=== PATIENT | male | born 1975 | race Caucasian/White ===

== ENCOUNTER 2019-06-28 23:49 | Emergency (ER) | payer MEDICAID ==
[~2019-06-28] VITALS: Ht 188 cm; Wt 117.9 kg
--- NOTE | 2019-06-29 00:12 | NUR ---
Note undone in EDM - 06/29/19 at 0015 by ESTRELLA BIBS FROM HOME TO ER BED 1. AAOX4. NO RESP DISTRESS NOTED, BREATHING EVEN AND UNLABORED. C/O HEADACHE, DIZZYNESS, TINGLING SENSATION ON FINGER AND HOT FLASHES S/P GLF FROM A FINE SCOOTER YESTERDAY AT 8PM. PT REPORTS THAT HE HIT BACK OF THE HEAD WHEN HE FELL BACKWARDS. NO NEURO DEFICIT NOTED UPON ASSESSMENT. MD WAS AT BEDSIDE FOR EVAL. AWAITING ORDERS
--- NOTE | 2019-06-29 00:12 | NUR ---
BIBS FROM HOME TO ER BED 1. AAOX4. NO RESP DISTRESS NOTED, BREATHING EVEN AND UNLABORED. C/O HEADACHE, DIZZYNESS, TINGLING SENSATION ON FINGER AND HOT FLASHES S/P GLF FROM A FINE SCOOTER YESTERDAY AT 8PM. PT REPORTS THAT HE HIT BACK OF THE HEAD WHEN HE FELL BACKWARDS. PT STATED THAT HE BLACKOUT OUT. NO NEURO DEFICIT NOTED UPON ASSESSMENT. MD WAS AT BEDSIDE FOR EVAL. AWAITING ORDERS
[2019-06-29 01:35] VITALS: BP 145/92
--- NOTE | 2019-06-29 01:35 | NUR ---
Patient discharged to home in stable condition. Written and verbal after care instructions given. Patient verbalizes understanding of instruction. Pt ambulatory with a steady gait
== END 2019-06-29 01:36 | disposition home or self-care (01) ==
LOC: ER 06-29 00:01
DX: S06.0X0A Concussion without loss of consciousness, initial encounter (principal); S00.03XA Contusion of scalp, initial encounter; S09.8XXA Other specified injuries of head, initial encounter; R51 Headache; W18.09XA Striking against other object with subsequent fall, initial encounter; Y93.89 Activity, other specified; Y92.89 Other specified places as the place of occurrence of the external cause; Y99.8 Other external cause status
CPT/HCPCS: 70450-TC